=== PATIENT | male | born 1940 ===

== ENCOUNTER 2023-06-30 10:49 | Outpatient (CLI) | payer MEDICARE, MEDICAID, SELFPAY ==
--- NOTE | 2023-06-30 11:00 | RT.EKG_ITS ---
APPROVED REPORT Exam: Resting ECG Reason for Exam: baseline Patient Location: O HR:87 bpm ECG Measurements Heart Rate 87 AXIS NM 178 P 70 QRSd 154 QRS -3 QT 392 T 152 QTc 472 Conclusion Sinus rhythm...normal P axis, V-rate 50- 99 Probable left atrial enlargement...P >50mS, <-0.10mV V1 Left bundle branch block...QRSd>120, broad/notched R
== END 2023-06-30 10:50 | disposition home or self-care (01) ==
LOC: DI.CARD 11:09
PROVIDERS: PCP Physician Assistant; Referring Provider Physician Assistant; Visit Provider Internal Medicine Cardiovascular Disease
DX: I51.9 Heart disease, unspecified (principal)
CPT/HCPCS: 93010

== ENCOUNTER → 2023-06-30 10:49 | Outpatient (BNVA) | payer MEDICARE, MEDICAID, SELFPAY | PROVIDERS: PCP Physician Assistant; Referring Provider Physician Assistant; Visit Provider Internal Medicine Cardiovascular Disease | DX: I35.0 Nonrheumatic aortic (valve) stenosis (principal); I42.2 Other hypertrophic cardiomyopathy; I44.7 Left bundle-branch block, unspecified; Z95.0 Presence of cardiac pacemaker; I51.9 Heart disease, unspecified | CPT/HCPCS: 93005; 99203 ==

== ENCOUNTER → 2023-12-30 10:58 | Outpatient (BNVA) | payer MEDICARE, MEDICAID, SELFPAY | PROVIDERS: Referring Provider Physician Assistant; Visit Provider Internal Medicine Cardiovascular Disease | DX: Z95.0 Presence of cardiac pacemaker (principal); I35.0 Nonrheumatic aortic (valve) stenosis | CPT/HCPCS: 99213 ==

== ENCOUNTER → 2024-01-18 10:35 | Outpatient (BNVA) | payer MEDICARE, MEDICAID, SELFPAY | PROVIDERS: Referring Provider Physician Assistant; Visit Provider Student in an Organized Health Care Education/Training Program | DX: Z95.810 Presence of automatic (implantable) cardiac defibrillator (principal); I44.30 Unspecified atrioventricular block | CPT/HCPCS: 93280 ==

== ENCOUNTER → 2024-06-29 10:39 | Outpatient (BNVA) | payer MEDICARE, MEDICAID, SELFPAY | PROVIDERS: Visit Provider Internal Medicine Cardiovascular Disease | DX: Z95.0 Presence of cardiac pacemaker (principal); I35.0 Nonrheumatic aortic (valve) stenosis | CPT/HCPCS: 99213 ==

== ENCOUNTER 2024-12-21 10:47 | Outpatient (CLI) | payer MEDICARE, MEDICAID, SELFPAY ==
--- NOTE | 2024-12-21 10:45 | RT.EKG_ITS ---
APPROVED REPORT Exam: Resting ECG Reason for Exam: Follow up Patient Location: O HR:76 bpm ECG Measurements Heart Rate 76 AXIS [place] 186 P 72 QRSd 148 QRS 27 QT 420 T 139 QTc 473 Conclusion Sinus rhythm...normal P axis, V-rate 50- 99 Atrial premature complex...SV complex w/ short R-R interval Probable left atrial enlargement...P >50mS, <-0.10mV V1 Left bundle branch block...QRSd>120, broad/notched R
== END 2024-12-21 10:48 | disposition home or self-care (01) ==
LOC: DI.CARD 10:53
PROVIDERS: Visit Provider Internal Medicine Cardiovascular Disease
DX: Z95.0 Presence of cardiac pacemaker (principal); I35.0 Nonrheumatic aortic (valve) stenosis; I10 Essential (primary) hypertension
CPT/HCPCS: 93010

== ENCOUNTER → 2024-12-21 10:47 | Outpatient (BNVA) | payer MEDICARE, MEDICAID, SELFPAY | PROVIDERS: Visit Provider Internal Medicine Cardiovascular Disease | DX: I35.0 Nonrheumatic aortic (valve) stenosis (principal); I10 Essential (primary) hypertension; Z95.0 Presence of cardiac pacemaker | CPT/HCPCS: 99213; 93005 ==

== ENCOUNTER → 2025-01-16 10:39 | Outpatient (BNVA) | payer MEDICARE, MEDICAID, SELFPAY | PROVIDERS: Visit Provider Student in an Organized Health Care Education/Training Program | DX: I44.30 Unspecified atrioventricular block (principal); Z45.018 Encounter for adjustment and management of other part of cardiac pacemaker | CPT/HCPCS: 93280 ==